=== PATIENT | female | born 1980 ===

== ENCOUNTER 2017-02-19 13:29 | Emergency (ER) | payer OTHER ==
[2017-02-19 13:42] VITALS: O2SAT 100
--- NOTE | 2017-02-19 13:53 | ED PDOC ---
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 No injury or trauma. She also has dyspnea. There is some dizziness. Some calf pain, but no swelling. Some nausea but no vomiting. No abdominal pain. No fever or chills. No URI. She has never experienced this previously. Past Medical History - Infectious Disease Hx of Infectious Diseases: None - Cardiac Other/Comment: High Triglycerides - Psychiatric Hx Substance Use: No Family/Social History - Physician Review Nursing Documentation Reviewed: Yes Family/Social History: Unknown Family HX Smoking Status: Never Smoked Hx Alcohol Use: No Hx Substance Use: No Allergies/Home Meds Allergies/Adverse Reactions: Allergies No Known Allergies Allergy (Verified 02/19/17 13:42) Review of Systems - Physician Review All systems were reviewed & negative as marked: Yes - Review of Systems Constitutional: absent: Fatigue, Fevers Respiratory: SOB. absent: Cough, Wheezing Cardiovascular: Chest Pain. absent: Palpitations, Orthopnea, Syncope Gastrointestinal: Nausea. absent: Abdominal Pain, Constipation, Diarrhea, Vomiting Genitourinary Female: absent: Dysuria, Frequency, Hematuria Neurological: Dizziness. absent: Headache, Focal Weakness, Gait Changes, Speech Changes, Facial Droop, Disequilibrium, Seizure Physical Exam Vital Signs Temp Pulse Resp BP Pulse Ox 02/19/17 14:03 97.8 F 101 H 19 138/88 100 02/19/17 13:33 98.1 F 103 H 18 138/84 100 Temperature: Afebrile Blood Pressure: Normal Pulse: Regular Respiratory Rate: Normal Appearance: Positive for: Well-Appearing, Non-Toxic, Uncomfortable Pain Distress: Mild Mental Status: Positive for: other (Awake alert and cooperative) - Systems Exam Head: Present: Atraumatic, Normocephalic Pupils: Present: PERRL Extroacular Muscles: Present: EOMI Conjunctiva: Present: Normal Ears: Present: NORMAL TM, Normal Canal. No: Erythema Mouth: Present: Moist Mucous Membranes Pharnyx: No: ERYTHEMA, EXUDATE, TONSILS ENLARGED Neck: Present: Normal Range of Motion Respiratory/Chest: Present: Clear to Auscultation, Good Air Exchange. No: Respiratory Distress, Accessory Muscle Use, Wheezes, Decreased Breath Sounds, Rales, Retracting, Rhonchi, Tachypneic, Tender to Palpation Cardiovascular: Present: Regular Rate and Rhythm, Normal S1, S2. No: Murmurs Abdomen: Present: Normal Bowel Sounds. No: Tenderness, Distention, Peritoneal Signs, Rebound, Guarding Back: Present: Normal Inspection. No: CVA Tenderness, Midline Tenderness, Paraspinal Tenderness Upper Extremity: Present: Normal Inspection. No: Cyanosis, Edema Lower Extremity: Present: Normal Inspection, NORMAL PULSES. No: Edema, CALF TENDERNESS, Cyanosis, Normal ROM, Argenis's Sign, Tenderness, Swelling, Erythema, Deformity, Neurovascularly Intact Neurological: Present: GCS=15, CN II-XII Intact, Speech Normal, Motor Func Grossly Intact Skin: Present: Warm, Dry, Normal Color. No: Rashes Psychiatric: Present: Alert, Oriented x 3, Normal Insight, Normal Concentration Medical Decision Making ED Course and Treatment: 02/19/17 14:07 EKG shows sinus tachycardia rate approximately [address] or T-wave changes 02/19/17 15:27 Symptoms markedly improved. Patient will be discharged home accompanied by her to follow up in the clinic. Workup is unrevealing. Treated for pleurisy with Naprosyn. Follow up in ER as needed. - Lab Interpretations Lab Results: 02/19/17 14:05 02/19/17 14:05 Lab Results 02/19/17 14:05: Sodium 140, Potassium 3.9, Chloride 101, Carbon Dioxide 26, Anion Gap 17, BUN 14, Creatinine 0.6, Est GFR ( Amer) > 60, Est GFR (Non- Af Amer) > 60, Random Glucose 132 H, Calcium 9.2, Total Bilirubin 0.3, AST 31, ALT 36, Alkaline Phosphatase 91, Lactate Dehydrogenase 404, Total Creatine Kinase 44, Troponin I < 0.01, NT-Pro-B Natriuret Pep 80.4, Total Protein 8.0, Albumin 4.4, Globulin 3.5, Albumin/Globulin Ratio 1.3 02/19/17 14:05: Urine Color Yellow, Urine Appearance Clear, Urine pH 6.0, Ur Specific [place] 1.010, Urine Protein Negative, Urine Glucose (UA) Negative, Urine Ketones Negative, Urine Blood Trace-lysed H, Urine Nitrate Negative, Urine Bilirubin Negative, Urine Urobilinogen 0.2, Ur Leukocyte Esterase Small H , Urine RBC 0 - 2, Urine WBC 5 - 10, Ur Epithelial Cells 4 - 5, Urine Bacteria Small 02/19/17 14:05: PT 10.5, INR 0.97, APTT 28.0, D-Dimer, Quantitative 0.24 02/19/17 14:05: WBC 9.1, RBC 5.29, Hgb 14.7, Hct 44.1, MCV 83.4, MCH 27.8, MCHC 33.3, RDW 13.4, Plt Count 333, MPV 10.0, Gran % 63.6, Lymph % (Auto) 24.9, [place] % (Auto) 10.9 H, Eos % (Auto) 0.4 L, Baso % (Auto) 0.2, Gran # 5.79, Lymph # 2.3 , [place] # 1.0 H, Eos # 0.0, Baso # 0.02 - RAD Interpretation Radiology Orders: 02/19/17 13:49 CHEST PORTABLE [RAD] Stat Chest 1 view shows no infiltrate or effusion or cardiomegaly 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 Ulcer: No History Surgical Site Infection Following: None - Disposition Have Diagnosis and Disposition been Completed?: Yes Diagnosis: Pleurisy Disposition: HOME/ ROUTINE Disposition Time: 15:27 Patient Plan: Discharge Condition: IMPROVED Discharge Instructions (ExitCare): Pleurisy (ED) Prescriptions: Naproxen [Naprosyn] 500 mg PO BID #14 tab Referrals: PCP,NO [Primary Care Provider] - Follow up with primary [facility] [place] [Outside] - Follow up with primary Forms: [employer] [place] (Citizen Of [place])
[2017-02-19 14:07] VITALS: BP 138/88; PULSE 101; RESP 19; TEMP 97.8; BMI 29.2
[2017-02-19 14:31] LABS: BASO # 0.02 K/mm3 (0.0-2.0); BASO % 0.2 % (0.0-3.0); EOS % 0.4 % (1.5-5.0); GRAN # 5.79 (1.4-6.5); GRAN % 63.6 % (50.0-68.0); HEMATOCRIT 44.1 % (36.0-48.0); LYMPH # 2.3 (1.2-3.4); LYMPH % 24.9 % (22.0-35.0); MEAN CELL VOLUME 83.4 fl (80.0-105.0); MEAN CORPUSCULAR HEMOGLOBIN 27.8 pg (25.0-35.0); MEAN CORPUSCULAR HGB CONC 33.3 g/dl (31.0-37.0); MONO % 10.9 % (1.0-6.0); RED CELL DISTRIBUTION WIDTH 13.4 % (11.5-14.5); WHITE BLOOD COUNT 9.1 10^3/ul (4.5-11.0)
[2017-02-19 14:32] LABS: URINE BILIRUBIN NEGATIVE (NEGATIVE); URINE BLOOD TRACE-LYSED (NEGATIVE); URINE GLUCOSE (UA) NEGATIVE (NEGATIVE); URINE KETONE NEGATIVE (NEGATIVE); URINE LEUKOCYTE ESTERASE SMALL Leu/uL (NEGATIVE); URINE PROTEIN NEGATIVE mg/dL (<30 mg/dL); URINE UROBILINOGEN 0.2 E.U./dL (<1 E.U./dL)
[2017-02-19 14:33] LABS: URINE APPEARANCE CLEAR (CLEAR); URINE COLOR YELLOW (YELLOW)
[2017-02-19 14:42] LABS: ALB/GLOB RATIO 1.3 (1.1-1.8); ALKALINE PHOSPHATASE 91 U/L (38-133); ALT/SGPT 36 U/L (7-56); AST/SGOT 31 U/L (15-39); BILIRUBIN,TOTAL 0.3 mg/dL (0.2-1.3); BLOOD UREA NITROGEN 14 mg/dL (7-21); CALCIUM 9.2 mg/dL (8.4-10.5); CARBON DIOXIDE 26 mmol/L (21-33); CHLORIDE 101 mmol/L (98-107); GFR AFRICAN-AMERICAN > 60; GLUCOSE,RANDOM 132 mg/dL (70-110); POTASSIUM 3.9 mmol/L (3.6-5.0); SODIUM 140 mmol/L (132-148)
[2017-02-19 14:45] LABS: INR 0.97 (0.93-1.08)
[2017-02-19 14:46] LABS: D DIMER 0.24 mg/L FEU (0-0.50)
[2017-02-19 14:53] LABS: URINE BACTERIA SMALL (NEG); URINE RBC 0 - 2 /hpf (0-2)
[2017-02-19 14:54] LABS: TROPONIN I < 0.01 ng/mL
--- NOTE | 2017-02-19 15:26 | RAD ---
HISTORY: cp COMPARISON: No prior. FINDINGS: LUNGS: No active pulmonary disease. PLEURA: No significant pleural effusion identified, no pneumothorax apparent. CARDIOVASCULAR: Normal. OSSEOUS STRUCTURES: No significant abnormalities. VISUALIZED UPPER ABDOMEN: Normal. OTHER FINDINGS: None. IMPRESSION: No active disease.
--- NOTE | 2017-02-20 01:27 | CARD ---
APPROVED REPORT EKG Measurement Heart [id number] <Conclusion> Sinus tachycardia Nonspecific ST abnormality Abnormal ECG
== END 2017-02-19 15:37 | disposition home or self-care (01) ==
LOC: ED 13:29
DX: R09.1 Pleurisy (principal)
CPT/HCPCS: 71010; 80053; 81001; 82550; 83615; 83880; 84484; 85025; 85378; 85610; 85730; 87086; 93005; 96374; 99283; J1885

== ENCOUNTER 2017-08-04 18:22 | Emergency (ER) | payer OTHER ==
[2017-08-04 18:36] VITALS: BMI 29.5
[2017-08-04 18:39] VITALS: BP 138/83; PULSE 76; RESP 18; TEMP 99.2; O2SAT 100
== END 2017-08-04 20:17 | disposition left against medical advice (07) ==
LOC: ED 18:22
DX: Z02.89 Encounter for other administrative examinations (principal); R10.9 Unspecified abdominal pain

== ENCOUNTER 2017-11-08 14:28 | Emergency (ER) | payer OTHER ==
[2017-11-08 14:50] VITALS: BMI 29.1
[2017-11-08] MEDS ORDERED: Sodium Chloride 0.9% 1,000 ML IV STA (15:35)
[2017-11-08 15:39] LABS: URINE BILIRUBIN NEGATIVE (NEGATIVE); URINE BLOOD TRACE-INTACT (NEGATIVE); URINE GLUCOSE (UA) NEGATIVE (NEGATIVE); URINE LEUKOCYTE ESTERASE LARGE Leu/uL (NEGATIVE); URINE PROTEIN TRACE mg/dL (<30 mg/dL); URINE UROBILINOGEN 0.2 E.U./dL (<1 E.U./dL)
--- NOTE | 2017-11-08 15:47 | ED PDOC ---
Arrival/HPI - General Chief Complaint: Female Genitourinary Time Seen by Provider: 11/08/17 15:21 Historian: Patient - History of Present Illness Narrative History of Present Illness (Text): 11/08/17 15:44 A 37 year old female presents to the emergency department complaining of lower abdominal pain since earlier today. Patient is Burmese speaking, history obtained through scribe. Patient notes associated nausea, dysuria and mild lower back pain. Patient denies any trauma, fever, chills, vomiting, diarrhea, chest pain,shortness of breath or any other complaints. Time/Duration: Other (today) Symptom Course: Unchanged Context: Home Past Medical History - Provider Review Nursing Documentation Reviewed: Yes - Infectious Disease Hx of Infectious Diseases: None - Cardiac Other/Comment: High Triglycerides - Psychiatric Hx Substance Use: No - Surgical History Hx Section: Yes Family/Social History - Physician Review Nursing Documentation Reviewed: Yes Family/Social History: No Known Family HX Smoking Status: Never Smoked Hx Alcohol Use: No Hx Substance Use: No Allergies/Home Meds Allergies/Adverse Reactions: Allergies No Known Allergies Allergy (Verified 11/08/17 14:49) Review of Systems - Physician Review All systems were reviewed & negative as marked: Yes - Review of Systems Constitutional: absent: Fevers, Night Sweats Respiratory: absent: SOB, Cough Cardiovascular: absent: Chest Pain, Palpitations Gastrointestinal: Abdominal Pain, Nausea. absent: Diarrhea, Vomiting Genitourinary Female: Dysuria. absent: Frequency, Hematuria, Vaginal Bleeding, Vaginal Discharge Musculoskeletal: Back Pain. absent: Arthralgias, Neck Pain Skin: absent: Rash, Pruritis Neurological: absent: Headache, Dizziness Psychiatric: absent: Anxiety, Depression Physical Exam Vital Signs Reviewed: Yes Vital Signs Temp Pulse Resp BP Pulse Ox 11/08/17 17:30 72 18 119/77 99 11/08/17 14:49 97.9 F 79 18 128/85 100 Temperature: Afebrile Blood Pressure: Normal Pulse: Regular Respiratory Rate: Normal Appearance: Positive for: Well-Appearing, Non-Toxic, Comfortable Pain Distress: None Mental Status: Positive for: Alert and Oriented X 3 - Systems Exam Head: Present: Atraumatic, Normocephalic Mouth: Present: Moist Mucous Membranes Neck: Present: Normal Range of Motion Respiratory/Chest: Present: Clear to Auscultation, Good Air Exchange. No: Respiratory Distress, Accessory Muscle Use Cardiovascular: Present: Regular Rate and Rhythm, Normal S1, S2. No: Murmurs Abdomen: Present: Tenderness (Right upper quadrant, right lower quadrant and superpubic region tenderness), Normal Bowel Sounds. No: Distention, Peritoneal Signs, Rebound, Guarding Back: Present: Normal Inspection. No: CVA Tenderness, Midline Tenderness, Paraspinal Tenderness Upper Extremity: Present: Normal ROM Lower Extremity: Present: Normal ROM Neurological: Present: GCS=15, Speech Normal Skin: Present: Warm, Dry, Normal Color. No: Rashes Psychiatric: Present: Alert, Oriented x 3 Medical Decision Making ED Course and Treatment: 11/08/17 15:44 Impression: A 37 year old female with suprapubic and right sided abdominal pain Plan: -- Abdomen and pelvis CT -- Labs -- Urine culture and Urinalysis -- Toradol and IV fluids -- Reassess and disposition Progress Notes: 11/08/17 20:10 Patient is nontoxic well appearing with stable vital signs presenting with rlq, ruq and suprapubic abdominal pain CBC wnl CMP wnl Urinalysis: + wbcs, + leukocytes CAT scan: FINDINGS: LOWER THORAX: Unremarkable. LIVER: Diffuse hepatic steatosis identified without mass or intrahepatic biliary dilatation evident grossly. GALLBLADDER AND BILE DUCTS: Unremarkable. PANCREAS: Unremarkable. No gross lesion or ductal dilatation. SPLEEN: Unremarkable. ADRENALS: Unremarkable. No mass. KIDNEYS AND URETERS: Unremarkable. No hydronephrosis. No solid mass. VASCULATURE: Unremarkable. No aortic aneurysm. BOWEL: The stomach is largely collapsed. There is no bowel obstruction appreciated or other suspicious bowel finding. Moderate fecal loading is seen throughout the proximal and middle thirds of the colon. Sigmoid diverticular changes are identified without diverticulitis. APPENDIX: Normal appendix. PERITONEUM: Unremarkable. No free fluid. No free air. LYMPH NODES: Unremarkable. No enlarged lymph nodes. BLADDER: Unremarkable. REPRODUCTIVE: Nonspecific heterogeneous enhancement is seen in the subtle fashion throughout the uterus may reflect limited fibroid disease. No suspicious adnexal findings bilaterally. BONES: No acute fracture. OTHER FINDINGS: None. IMPRESSION: 1. Hepatic steatosis with liver otherwise unremarkable. 2. Sigmoid diverticulosis without diverticulitis. 3. Nonspecific inhomogeneous enhancement of the uterus may reflect underlying fibroids though this is not definite. Patient reassessment: pt is non toxic well appearing no distress. feeling better after medications. kelfex given po Discussed all results with patient in depth, advised f/u with pmd, advised taking antibiotic as prescribed and return if symptoms worsen, persist or if new symptoms develop. Patient verbalizes understanding of discharge instructions and need for immediate followup. all aspects of this case were discussed the attending of record. Impression: Abdominal pain, UTI Motrin every 6 hours as needed for pain keflex; 1 capsule twice daily x 7 days. Follow up with primary care physician within the next 2 days Follow up with the urologist within the next 2 days. Return immediately if symptoms worsen persist or if new symptoms develop: High fevers, increasing pain, vomiting, diarrhea or any other concerning symptoms develop Reassessment Condition: Re-examined, Improved - Lab Interpretations Lab Results: 11/08/17 16:59 11/08/17 16:59 Lab Results 11/08/17 16:59: WBC 7.0 D, RBC 5.18, Hgb 14.5, Hct 43.2, MCV 83.4, MCH 28.0, MCHC 33.6, RDW 13.6, Plt Count 308, MPV 10.1, Gran % 58.0, Lymph % (Auto) 27.7, [place] % (Auto) 13.6 H, Eos % (Auto) 0.4 L, Baso % (Auto) 0.3, Gran # 4.08, Lymph # (Auto) 2.0, [place] # (Auto) 1.0 H, Eos # (Auto) 0.0, Baso # (Auto) 0.02 11/08/17 16:59: Sodium 147, Potassium 3.8, Chloride 107, Carbon Dioxide 27, Anion Gap 17, BUN 12, Creatinine 0.6 L, Est GFR ( Amer) > 60, Est GFR ( Non-Af Amer) > 60, Random Glucose 103, Calcium 9.4, Total Bilirubin 0.2, AST 26 , ALT 35, Alkaline Phosphatase 76, Total Protein 7.7, Albumin 4.4, Globulin 3.3 , Albumin/Globulin Ratio 1.3, Lipase 54 11/08/17 15:27: Urine Color Yellow, Urine Appearance Clear, Urine pH 6.0, Ur Specific [place] 1.025, Urine Protein Trace H, Urine Glucose (UA) Negative, Urine Ketones Negative, Urine Blood Trace-intact H, Urine Nitrate Negative, Urine Bilirubin Negative, Urine Urobilinogen 0.2, Ur Leukocyte Esterase Large H , Urine RBC 2 - 5, Urine WBC 25 - 30, Ur Epithelial Cells Many, Amorphous Sediment Small, Urine Bacteria Many, Fine Granular Casts 0 - 2, Urine Other [place] I have reviewed the lab results: Yes - RAD Interpretation Radiology Orders: 11/08/17 15:35 ABD & PELVIS IV CONTRAST ONLY [CT] Stat - Medication Orders Current Medication Orders: Discontinued Medications Cephalexin Monohydrate (Keflex) 500 mg PO STAT STA PRN Reason: Protocol Stop: 11/08/17 19:28 Last Admin: 11/08/17 19:39 Dose: 500 mg Sodium Chloride (Sodium Chloride 0.9%) 1,000 mls @ 999 mls/hr IV .Q1H1M STA Stop: 11/08/17 16:35 Last Admin: 11/08/17 16:20 Dose: 999 mls/hr eMAR Start Stop Document 11/08/17 16:20 LETICIA (Rec: 11/08/17 16:53 LETICIA AARON-PC) Intravenous Solution Start Date 11/08/17 Start Time 16:20 End Date 11/08/17 End time 17:20 Total Infusion Time 60 Ketorolac Tromethamine (Toradol) 30 mg IVP STAT STA Stop: 11/08/17 15:36 Last Admin: 11/08/17 16:20 Dose: 30 mg [facility] Pain Assessment Document 11/08/17 16:20 LETICIA (Rec: 11/08/17 16:52 LETICIA AARON-PC) Pain Reassessment Is this a pain reassessment? No Sleep Is patient sleeping during reassessment? No Presence of Pain Presence of Pain Yes IVP Administration Document 11/08/17 16:20 LETICIA (Rec: 11/08/17 16:52 LETICIA AARON-PC) Charges for Administration # of IVP Administrations 1 Re-Assess: [place] Pain Assessment Document 11/08/17 17:20 LETICIA (Rec: 11/08/17 18:25 LETICIA AARON-PC) Pain Reassessment Is this a pain reassessment? Yes Sleep Is patient sleeping during reassessment? No Presence of Pain Presence of Pain No - Scribe Statement The provider has reviewed the documentation as recorded by the Erichibjared Tristan Provider Scribe Attestation: All medical record entries made by the Scribe were at my direction and personally dictated by me. I have reviewed the chart and agree that the record accurately reflects my personal performance of the history, physical exam, medical decision making, and the department course for this patient. I have also personally directed, reviewed, and agree with the discharge instructions and disposition. Disposition/Present on Arrival - Present on Arrival Any Indicators Present on Arrival: No History of DVT/PE: No History of Uncontrolled Diabetes: No Urinary Catheter: No History of Decub. Ulcer: No History Surgical Site Infection Following: None - Disposition Have Diagnosis and Disposition been Completed?: Yes Diagnosis: Urinary tract infection, Abdominal pain Disposition: HOME/ ROUTINE Disposition Time: 20:16 Patient Plan: Discharge Patient Problems: Current Active Problems Problem Status Onset Abdominal pain Acute Urinary tract infection Acute Condition: GOOD Discharge Instructions (ExitCare): Urinary Tract Infections in Adults, Acute Abdomen (Belly Pain), Adult (DC) Additional Instructions: Motrin every 6 hours as needed for pain keflex; 1 capsule twice daily x 7 days. Follow up with primary care physician within the next 2 days Follow up with the urologist within the next 2 days. Return immediately if symptoms worsen persist or if new symptoms develop: High fevers, increasing pain, vomiting, diarrhea or any other concerning symptoms develop Prescriptions: Cephalexin [Keflex] 500 mg PO BID #14 capsule Ibuprofen [Motrin] 600 mg PO Q6H PRN #20 tab PRN Reason: pain/fever reduction Referrals: Mohsen Pablo DO [Staff Provider] - Follow up with primary Aleah Francis MD [Staff Provider] - Follow up with primary Forms: [employer] (L[place]ian), WORK NOTE
[2017-11-08 15:48] LABS: URINE APPEARANCE CLEAR (CLEAR); URINE COLOR YELLOW (YELLOW)
[2017-11-08 15:51] LABS: URINE AMORPHOUS SEDIMENT SMALL; URINE BACTERIA MANY (NEG); URINE WBC 25 - 30 /hpf (0-6)
[2017-11-08 15:52] LABS: URINE EPITHELIAL CELLS MANY /hpf (0-5); URINE FINE GRANULAR CAST 0 - 2 /hpf (0-2)
[2017-11-08 17:05] LABS: BASO # 0.02 K/mm3 (0.0-2.0); BASO % 0.3 % (0.0-3.0); EOS % 0.4 % (1.5-5.0); GRAN # 4.08 (1.4-6.5); HEMOGLOBIN 14.5 g/dL (12.0-16.0); LYMPH % 27.7 % (22.0-35.0); MEAN CELL VOLUME 83.4 fl (80.0-105.0); MEAN CORPUSCULAR HGB CONC 33.6 g/dl (31.0-37.0); MEAN PLATELET VOLUME 10.1 fl (7.0-11.0); MONO % 13.6 % (1.0-6.0); RBC 5.18 10^6/uL (3.5-6.1); RED CELL DISTRIBUTION WIDTH 13.6 % (11.5-14.5)
[2017-11-08 17:15] LABS: ALB/GLOB RATIO 1.3 (1.1-1.8); ALBUMIN 4.4 g/dL (3.0-4.8); ALT/SGPT 35 U/L (7-56); AST/SGOT 26 U/L (14-36); BLOOD UREA NITROGEN 12 mg/dL (7-21); CALCIUM 9.4 mg/dL (8.4-10.5); GFR NON-AFRICAN AMERICAN > 60; LIPASE 54 U/L (23-300)
[2017-11-08] MEDS ORDERED: Iohexol 350 MG/100 ML VIAL ONE (18:13)
[2017-11-08 18:42] VITALS: PULSE 72
--- NOTE | 2017-11-08 19:09 | CT ---
PROCEDURE: CT Abdomen and Pelvis with contrast HISTORY: abd pain COMPARISON: None. TECHNIQUE: Following the intravenous administration of iodinated contrast material, a CT examination of the abdomen and pelvis performed from the domes of the diaphragms to the symphysis pubis with reformatted datasets provided not only axial but also sagittal and coronal planes. Oral contrast was not administered as per referring physician request. Contrast dose: Omnipaque 350, 100 cc Radiation dose: Total exam DLP = 628.22 mGy-cm. This CT exam was performed using one or more of the following dose reduction techniques: Automated exposure control, adjustment of the mA and/or kV according to patient size, and/or use of iterative reconstruction technique. FINDINGS: LOWER THORAX: Unremarkable. LIVER: Diffuse hepatic steatosis identified without mass or intrahepatic biliary dilatation evident grossly. GALLBLADDER AND BILE DUCTS: Unremarkable. PANCREAS: Unremarkable. No gross lesion or ductal dilatation. SPLEEN: Unremarkable. ADRENALS: Unremarkable. No mass. KIDNEYS AND URETERS: Unremarkable. No hydronephrosis. No solid mass. VASCULATURE: Unremarkable. No aortic aneurysm. BOWEL: The stomach is largely collapsed. There is no bowel obstruction appreciated or other suspicious bowel finding. Moderate fecal loading is seen throughout the proximal and middle thirds of the colon. Sigmoid diverticular changes are identified without diverticulitis. APPENDIX: Normal appendix. PERITONEUM: Unremarkable. No free fluid. No free air. LYMPH NODES: Unremarkable. No enlarged lymph nodes. BLADDER: Unremarkable. REPRODUCTIVE: Nonspecific heterogeneous enhancement is seen in the subtle fashion throughout the uterus may reflect limited fibroid disease. No suspicious adnexal findings bilaterally. BONES: No acute fracture. OTHER FINDINGS: None. IMPRESSION: 1. Hepatic steatosis with liver otherwise unremarkable. 2. Sigmoid diverticulosis without diverticulitis. 3. Nonspecific inhomogeneous enhancement of the uterus may reflect underlying fibroids though this is not definite.
[2017-11-08 20:36] VITALS: BP 122/83; RESP 17; TEMP 98.2; O2SAT 100
== END 2017-11-08 20:35 | disposition home or self-care (01) ==
LOC: ED 14:28
DX: N39.0 Urinary tract infection, site not specified (principal); E78.1 Pure hyperglyceridemia
CPT/HCPCS: 74177; 80053; 81001; 83690; 85025; 87086; 96361; 96374; 99283; J1885; J7040; Q9967

== ENCOUNTER 2018-03-02 14:09 | Emergency (ER) | payer OTHER ==
--- NOTE | 2018-03-02 14:34 | ED PDOC ---
Arrival/HPI - General Time Seen by Provider: 03/02/18 14:32 Historian: Patient - History of Present Illness Narrative History of Present Illness (Text): 03/02/18 14:32 37 y/o female, pmh including UTI, nkda, c/o urinary frequency x 4 days and fatigue started today. Pt. stated that she has urinary frequency for the past 4 days, no burning sensation, no flank pain, no pelvic pain, no night sweat, no rash, no change in vision or dizziness, no rash, no other medical or psychological complaints. Past Medical History - Provider Review Nursing Documentation Reviewed: Yes - Infectious Disease Hx of Infectious Diseases: None - Cardiac Other/Comment: High Triglycerides - Psychiatric Hx Substance Use: No - Surgical History Hx Section: Yes Family/Social History - Physician Review Nursing Documentation Reviewed: Yes Family/Social History: Unknown Family HX Smoking Status: Never Smoked Hx Alcohol Use: No Hx Substance Use: No Allergies/Home Meds Allergies/Adverse Reactions: Allergies No Known Allergies Allergy (Verified 03/02/18 15:13) Review of Systems - Review of Systems Constitutional: Fatigue. absent: Fevers Eyes: absent: Vision Changes ENT: absent: Hearing Changes Respiratory: absent: SOB, Cough Cardiovascular: absent: Chest Pain Gastrointestinal: absent: Abdominal Pain, Nausea, Vomiting Genitourinary Female: Other (+frequency). absent: Dysuria, Hematuria, Vaginal Bleeding, Vaginal Discharge Skin: absent: Rash, Pruritis Neurological: absent: Headache, Dizziness Psychiatric: absent: Anxiety, Depression Physical Exam Vital Signs Reviewed: Yes Vital Signs Temp Pulse Resp BP Pulse Ox 03/02/18 17:35 65 18 128/74 99 03/02/18 16:41 69 18 131/79 99 03/02/18 15:06 98.6 F 74 18 133/85 99 Temperature: Afebrile Blood Pressure: Normal Pulse: Regular Respiratory Rate: Normal Appearance: Positive for: Well-Appearing, Non-Toxic, Comfortable Pain Distress: None Mental Status: Positive for: Alert and Oriented X 3 - Systems Exam Head: Present: Atraumatic, Normocephalic Pupils: Present: PERRL Extroacular Muscles: Present: EOMI Conjunctiva: Present: Normal Mouth: Present: Moist Mucous Membranes Neck: Present: Normal Range of Motion Respiratory/Chest: Present: Clear to Auscultation, Good Air Exchange. No: Respiratory Distress, Accessory Muscle Use Cardiovascular: Present: Regular Rate and Rhythm, Normal S1, S2. No: Murmurs Abdomen: No: Tenderness, Distention, Peritoneal Signs, Rebound, Guarding Back: Present: Normal Inspection Upper Extremity: Present: Normal Inspection. No: Cyanosis, Edema Lower Extremity: Present: Normal Inspection. No: Edema Neurological: Present: GCS=15, CN II-XII Intact, Speech Normal Skin: Present: Warm, Dry, Normal Color. No: Rashes Psychiatric: Present: Alert, Oriented x 3, Normal Insight, Normal Concentration Medical Decision Making ED Course and Treatment: 03/02/18 15:16 -Labs/ua/ -IVF -Observe and reassess 03/02/18 17:53 -Labs show no acute findings -UA show +UTI, rocephine ordered -Pt. feels much better after IVF, will discharge home -Discharge home with macrobid, bed rest, stay hydrated, follow up with your own pmd within 2 days and repeat UA after 7 days to ensure the resolution of the UTI , return to the ER for any new or worsening signs or symptoms. - Lab Interpretations Lab Results: 03/02/18 15:15 03/02/18 16:57 Lab Results 03/02/18 16:57: Sodium 143, Potassium 3.8, Chloride 109 H, Carbon Dioxide 22, Anion Gap 16, BUN 10, Creatinine 0.6 L, Est GFR ( Amer) > 60, Est GFR ( Non-Af Amer) > 60, Random Glucose 84, Calcium 8.5, Magnesium 2.2, Total Bilirubin 0.6, AST 23, ALT 23, Alkaline Phosphatase 83, Total Protein 7.5, Albumin 4.2, Globulin 3.3, Albumin/Globulin Ratio 1.3 03/02/18 15:26: POC Glucose (mg/dL) 96 03/02/18 15:15: WBC 7.0, RBC 5.06, Hgb 14.3, Hct 41.9, MCV 82.8, MCH 28.3, MCHC 34.1, RDW 13.3, Plt Count 309, MPV 10.6, Gran % 58.4, Lymph % (Auto) 26.0, [place] % (Auto) 14.3 H, Eos % (Auto) 0.9 L, Baso % (Auto) 0.4, Gran # 4.10, Lymph # ( Auto) 1.8, [place] # (Auto) 1.0 H, Eos # (Auto) 0.1, Baso # (Auto) 0.03 03/02/18 15:15: Urine Color Yellow, Urine Appearance Sl cloudy, Urine pH 7.0, Ur Specific [place] 1.015, Urine Protein Negative, Urine Glucose (UA) Negative, Urine Ketones Trace H, Urine Blood Negative, Urine Nitrate Negative, Urine Bilirubin Negative, Urine Urobilinogen 0.2, Ur Leukocyte Esterase Large H, Urine RBC 0 - 2, Urine WBC 10 - 15, Ur Epithelial Cells Many, Urine Bacteria Mod - Medication Orders Current Medication Orders: Discontinued Medications Sodium Chloride (Sodium Chloride 0.9%) 1,000 mls @ 999 mls/hr IV .Q1H1M STA Stop: 03/02/18 16:15 Last Admin: 03/02/18 15:29 Dose: 999 mls/hr eMAR Start Stop Document 03/02/18 15:29 SF (Rec: 03/02/18 15:29 SF [facility] [id number] Intravenous Solution Start Date 03/02/18 Start Time 15:29 End Date 03/02/18 End time 16:30 Total Infusion Time 61 - PA / BUMBOATER / Resident Statement MD/DO has reviewed & agrees with the documentation as recorded. Disposition/Present on Arrival - Present on Arrival Any Indicators Present on Arrival: No History of DVT/PE: No History of Uncontrolled Diabetes: No Urinary Catheter: No History of Decub. Ulcer: No History Surgical Site Infection Following: None - Disposition Have Diagnosis and Disposition been Completed?: Yes Diagnosis: UTI (urinary tract infection), Fatigue Disposition: HOME/ ROUTINE Disposition Time: 17:55 Patient Plan: Discharge Condition: IMPROVED Additional Instructions: -Discharge home with macrobid, bed rest, stay hydrated, follow up with your own pmd within 2 days and repeat UA after 7 days to ensure the resolution of the UTI , return to the ER for any new or worsening signs or symptoms. Prescriptions: Nitrofurantoin Macrocrystals [Macrobid] 100 mg PO BID #[id number] Referrals: [facility] [place] - Follow up with primary Forms: WORK NOTE
[2018-03-02] MEDS ORDERED: Sodium Chloride 0.9% 1,000 ML IV STA (15:15)
[2018-03-02 15:20] VITALS: RESP 18; TEMP 98.6; O2SAT 99; BMI 26.3
[2018-03-02 15:56] LABS: BASO # 0.03 K/mm3 (0.0-2.0); BASO % 0.4 % (0.0-3.0); EOS # 0.1 (0.0-0.7); EOS % 0.9 % (1.5-5.0); GRAN # 4.1 (1.4-6.5); GRAN % 58.4 % (50.0-68.0); HEMOGLOBIN 14.3 g/dL (12.0-16.0); LYMPH # 1.8 (1.2-3.4); MEAN CELL VOLUME 82.8 fl (80.0-105.0); MEAN CORPUSCULAR HEMOGLOBIN 28.3 pg (25.0-35.0); MEAN CORPUSCULAR HGB CONC 34.1 g/dl (31.0-37.0); MEAN PLATELET VOLUME 10.6 fl (7.0-11.0); MONO % 14.3 % (1.0-6.0); RBC 5.06 10^6/uL (3.5-6.1); RED CELL DISTRIBUTION WIDTH 13.3 % (11.5-14.5); URINE BILIRUBIN NEGATIVE (NEGATIVE); URINE BLOOD NEGATIVE (NEGATIVE); URINE GLUCOSE (UA) NEGATIVE (NEGATIVE); URINE LEUKOCYTE ESTERASE LARGE Leu/uL (NEGATIVE); URINE PROTEIN NEGATIVE mg/dL (<30 mg/dL); URINE UROBILINOGEN 0.2 E.U./dL (<1 E.U./dL)
[2018-03-02 15:57] LABS: URINE APPEARANCE SL CLOUDY (CLEAR); URINE COLOR YELLOW (YELLOW)
[2018-03-02 16:12] LABS: URINE BACTERIA MOD (NEG); URINE EPITHELIAL CELLS MANY /hpf (0-5); URINE RBC 0 - 2 /hpf (0-2)
[2018-03-02 17:13] LABS: ALB/GLOB RATIO 1.3 (1.1-1.8); ALBUMIN 4.2 g/dL (3.0-4.8); ALT/SGPT 23 U/L (7-56); AST/SGOT 23 U/L (14-36); BLOOD UREA NITROGEN 10 mg/dL (7-21); CALCIUM 8.5 mg/dL (8.4-10.5); GFR NON-AFRICAN AMERICAN > 60
[2018-03-02] MEDS ORDERED: cefTRIAXone 1 gm 1 GM/100 ML BAG IVPB STA (17:53)
[2018-03-02 18:12] VITALS: BP 127/80; PULSE 66
== END 2018-03-02 18:53 | disposition home or self-care (01) ==
LOC: ED 14:09
DX: N39.0 Urinary tract infection, site not specified (principal); R53.83 Other fatigue
CPT/HCPCS: 80053; 81001; 82948; 83735; 85025; 87086; 96361; 96365; 99285; J0696; J7030